=== PATIENT | female | born 1950 | race Caucasian/White ===

== ENCOUNTER 2019-02-24 14:06 | Inpatient (IN) | payer MEDICARE ==
[~2019-02-24] VITALS: Ht 162.6 cm; Wt 80.7 kg
[2019-02-24] MEDS ORDERED: QUET300T2 PO (14:17)
[2019-02-24] MEDS ORDERED: VENL75CA56 PO (14:17)
[2019-02-24] MEDS ORDERED: CLON0.5T PO (14:17)
[2019-02-24 14:47] VITALS: BP 141/96
[2019-02-24] MEDS ORDERED: NITR100C11 PO (15:01)
[2019-02-24] MEDS ORDERED: MAG HYDROX/AL HYDROX/SIMETH 30 ML LIQUID UDC PO PRN (15:15)
[2019-02-24] MEDS ORDERED: MAGNESIUM HYDROXIDE 30 ML LIQUID UDC PO PRN (15:15)
[2019-02-24] MEDS ORDERED: ZOLPIDEM 5 MG TABLET PO PRN (15:15)
[2019-02-24] MEDS: LORAZEPAM 0.5 MG TABLET PO PRN (18:00)
[2019-02-24] MEDS: ACETAMINOPHEN 325 MG TABLET PO PRN (18:32)
[2019-02-24 20:34] VITALS: BP 147/66
[2019-02-24] MEDS ORDERED: NITROFURANTOIN/NITROFURAN MAC 100 MG CAPSULE PO SCH (20:52)
[2019-02-24] MEDS: NITROFURANTOIN/NITROFURAN MAC 100 MG CAPSULE PO SCH (21:27)
[2019-02-24] MEDS ORDERED: LORAZEPAM 0.5 MG TABLET PO PRN (21:30)
[2019-02-25] MEDS: ACETAMINOPHEN 325 MG TABLET PO PRN ×3 (01:14→18:38)
[2019-02-25 07:30] VITALS: BP 132/78
[2019-02-25] MEDS: MULTIVITAMINS,THERAPEUTIC TABLET PO SCH (08:06)
[2019-02-25] MEDS: NITROFURANTOIN/NITROFURAN MAC 100 MG CAPSULE PO SCH ×2 (08:06→20:01)
[2019-02-25] MEDS: THIAMINE HCL 100 MG TABLET PO SCH (08:06)
[2019-02-25] MEDS: FOLIC ACID 1 MG TABLET PO SCH (08:06)
[2019-02-25] MEDS: LORAZEPAM 0.5 MG TABLET PO PRN (08:06)
[2019-02-25 08:09] LABS: BASOPHILS % (AUTO) 0.5 % (0.0-2.0); EOSINOPHILS # (AUTO) 0.1 K/uL (0.0-0.7); HEMOGLOBIN 13.8 g/dL (10.9-14.3); LYMPHOCYTES # (AUTO) 1.8 K/uL (20.0-40.0); MEAN CORPUSCULAR HEMOGLOBIN 34.8 uug (24.7-32.8); MEAN CORPUSCULAR HGB CONC 34 g/dL (32.3-35.6); MEAN CORPUSCULAR VOLUME 103.2 fL (75.5-95.3); MONOCYTES # (AUTO) 0.9 K/uL (2.0-10.0); MONOCYTES % (AUTO) 17.7 % (0.0-11.0); NEUTROPHILS # (AUTO) 2.5 K/uL (1.8-8.9); NEUTROPHILS % (AUTO) 46.8 % (38.5-71.5); PLATELET COUNT (AUTO) 284 K/uL (179-408); RED BLOOD CELL COUNT(AUTO) 3.98 MIL/uL (3.63-4.92); WHITE BLOOD COUNT (AUTO) 5.3 K/uL (3.8-11.8)
[2019-02-25 09:04] LABS: BILIRUBIN,TOTAL 0.5 mg/dL (0.2-1.0); CREATININE 0.7 mg/dL (0.6-1.3); PHOSPHOROUS 3.2 mg/dL (2.5-4.9); POTASSIUM 2.9 mmol/L (3.5-5.1); TOTAL PROTEIN, SERUM 6.4 g/dL (6.4-8.2)
[2019-02-25 09:52] LABS: THYROID STIMULATING HORMONE 23.903 mIU/mL (0.358-3.740)
[2019-02-25 09:57] LABS: EOSINOPHILS % (MANUAL) 2 % (0-8); LYMPHOCYTES % (MANUAL) 41 % (20-40); MONOCYTES % (MANUAL) 15 % (2-10); NEUTROPHILS % (MANUAL) 42 % (42-75)
[2019-02-25] MEDS: CLONAZEPAM 0.5 MG TABLET PO SCH ×3 (10:05→16:24)
[2019-02-25] MEDS ORDERED: POTASSIUM CHLORIDE 20 MEQ TAB.PRT.SR PO ONE (12:45)
[2019-02-25 20:00] VITALS: BP 145/82
[2019-02-25] MEDS ORDERED: QUETIAPINE FUMARATE 200 MG TABLET PO SCH (21:00)
[2019-02-26] MEDS: THYROID 60 MG TABLET PO SCH (06:45)
[2019-02-26 07:56] VITALS: BP 137/77
[2019-02-26] MEDS: CLONAZEPAM 0.5 MG TABLET PO SCH ×3 (08:52→16:08)
[2019-02-26] MEDS: NITROFURANTOIN/NITROFURAN MAC 100 MG CAPSULE PO SCH ×2 (08:52→20:21)
[2019-02-26] MEDS: THIAMINE HCL 100 MG TABLET PO SCH (08:52)
[2019-02-26] MEDS: MULTIVITAMINS,THERAPEUTIC TABLET PO SCH (08:53)
[2019-02-26] MEDS: FOLIC ACID 1 MG TABLET PO SCH (08:53)
[2019-02-26] MEDS: VENLAFAXINE 25 MG TABLET PO SCH (08:56)
[2019-02-26 16:41] VITALS: BP 134/77
[2019-02-26] MEDS: QUETIAPINE FUMARATE 200 MG TABLET PO SCH (20:21)
[2019-02-26 20:26] VITALS: BP 126/77
[2019-02-27] MEDS: ACETAMINOPHEN 325 MG TABLET PO PRN ×3 (06:43→19:34)
[2019-02-27] MEDS: THYROID 60 MG TABLET PO SCH (06:43)
[2019-02-27 07:30] VITALS: BP 139/80
[2019-02-27] MEDS: NITROFURANTOIN/NITROFURAN MAC 100 MG CAPSULE PO SCH ×2 (09:32→20:24)
[2019-02-27] MEDS: MULTIVITAMINS,THERAPEUTIC TABLET PO SCH (09:32)
[2019-02-27] MEDS: THIAMINE HCL 100 MG TABLET PO SCH (09:32)
[2019-02-27] MEDS: CLONAZEPAM 0.5 MG TABLET PO SCH ×3 (09:32→16:40)
[2019-02-27] MEDS: FOLIC ACID 1 MG TABLET PO SCH (09:32)
[2019-02-27] MEDS: VENLAFAXINE 25 MG TABLET PO SCH (09:33)
[2019-02-27 16:00] VITALS: BP 118/70
[2019-02-27] MEDS: QUETIAPINE FUMARATE 200 MG TABLET PO SCH (20:23)
[2019-02-27 20:54] VITALS: BP 126/73
[2019-02-28] MEDS: ACETAMINOPHEN 325 MG TABLET PO PRN ×2 (04:58→10:59)
[2019-02-28] MEDS: THYROID 60 MG TABLET PO SCH (06:44)
[2019-02-28] MEDS: FOLIC ACID 1 MG TABLET PO SCH (08:25)
[2019-02-28] MEDS: THIAMINE HCL 100 MG TABLET PO SCH (08:25)
[2019-02-28] MEDS: MULTIVITAMINS,THERAPEUTIC TABLET PO SCH (08:25)
[2019-02-28] MEDS: CLONAZEPAM 0.5 MG TABLET PO SCH ×3 (08:25→16:44)
[2019-02-28] MEDS: VENLAFAXINE 25 MG TABLET PO SCH ×2 (08:26→16:45)
[2019-02-28 08:50] VITALS: BP 117/68
[2019-02-28 16:00] VITALS: BP 120/79
[2019-02-28] MEDS ORDERED: TRAMADOL HCL 50 MG TABLET PO ONE (19:00)
[2019-02-28 19:50] VITALS: BP 128/67
[2019-02-28] MEDS: QUETIAPINE FUMARATE 200 MG TABLET PO SCH (20:33)
[2019-03-01] MEDS: THYROID 60 MG TABLET PO SCH (06:25)
[2019-03-01 07:49] VITALS: BP_SYST 124; BP_SYST 143; BP_DIAS 58; BP_DIAS 78
[2019-03-01] MEDS: VENLAFAXINE 25 MG TABLET PO SCH ×2 (08:21→17:00)
[2019-03-01] MEDS: CLONAZEPAM 0.5 MG TABLET PO SCH ×3 (08:22→17:00)
[2019-03-01] MEDS: FOLIC ACID 1 MG TABLET PO SCH (08:22)
[2019-03-01] MEDS: MULTIVITAMINS,THERAPEUTIC TABLET PO SCH (08:22)
[2019-03-01] MEDS: THIAMINE HCL 100 MG TABLET PO SCH (08:22)
[2019-03-01] MEDS: ACETAMINOPHEN 325 MG TABLET PO PRN ×2 (08:27→14:38)
[2019-03-01 15:52] VITALS: BP 136/87
[2019-03-01 19:34] VITALS: BP 145/76
[2019-03-01] MEDS: QUETIAPINE FUMARATE 200 MG TABLET PO SCH (21:00)
[2019-03-02] MEDS: ACETAMINOPHEN 325 MG TABLET PO PRN ×3 (02:01→20:08)
[2019-03-02] MEDS: THYROID 60 MG TABLET PO SCH (07:02)
[2019-03-02 07:30] VITALS: BP 115/74
[2019-03-02] MEDS: CLONAZEPAM 0.5 MG TABLET PO SCH ×3 (08:54→16:35)
[2019-03-02] MEDS: MULTIVITAMINS,THERAPEUTIC TABLET PO SCH (08:54)
[2019-03-02] MEDS: VENLAFAXINE 25 MG TABLET PO SCH ×2 (08:54→16:35)
[2019-03-02] MEDS: FOLIC ACID 1 MG TABLET PO SCH (08:54)
[2019-03-02] MEDS: THIAMINE HCL 100 MG TABLET PO SCH (08:54)
[2019-03-02 15:44] VITALS: BP 115/89
[2019-03-02] MEDS: QUETIAPINE FUMARATE 200 MG TABLET PO SCH (20:08)
[2019-03-02 20:47] VITALS: BP 133/67
[2019-03-03] MEDS: ACETAMINOPHEN 325 MG TABLET PO PRN ×4 (03:58→23:32)
[2019-03-03] MEDS: THYROID 60 MG TABLET PO SCH (06:06)
[2019-03-03 07:30] VITALS: BP 124/79
[2019-03-03] MEDS: VENLAFAXINE 25 MG TABLET PO SCH ×2 (08:44→16:59)
[2019-03-03] MEDS: THIAMINE HCL 100 MG TABLET PO SCH (08:44)
[2019-03-03] MEDS: MULTIVITAMINS,THERAPEUTIC TABLET PO SCH (08:44)
[2019-03-03] MEDS: CLONAZEPAM 0.5 MG TABLET PO SCH (08:44)
[2019-03-03] MEDS: FOLIC ACID 1 MG TABLET PO SCH (08:44)
[2019-03-03] MEDS ORDERED: LORAZEPAM 1 MG TABLET PO PRN (09:30)
[2019-03-03] MEDS ORDERED: INFLUENZA VACCINE 2019-2020 0.5 ML DISP.SYRIN IM ONE (11:00)
[2019-03-03 15:35] VITALS: BP 122/87
[2019-03-03 20:00] VITALS: BP 129/79
[2019-03-03] MEDS ORDERED: QUETIAPINE FUMARATE 200 MG TABLET PO SCH (21:00)
[2019-03-04] MEDS: ACETAMINOPHEN 325 MG TABLET PO PRN (05:18)
[2019-03-04] MEDS: THYROID 60 MG TABLET PO SCH (06:01)
[2019-03-04 07:30] VITALS: BP 128/74
[2019-03-04] MEDS: MULTIVITAMINS,THERAPEUTIC TABLET PO SCH (08:39)
[2019-03-04] MEDS: FOLIC ACID 1 MG TABLET PO SCH (08:39)
[2019-03-04] MEDS: THIAMINE HCL 100 MG TABLET PO SCH (08:39)
[2019-03-04] MEDS: VENLAFAXINE 25 MG TABLET PO SCH (08:39)
== END 2019-03-04 13:30 | disposition home or self-care (01) | DRG 885 ==
LOC: ER 14:06 → GPS 14:30
PROVIDERS: ADMIT Psychiatry & Neurology Psychiatry; ATTEND Internal Medicine
DX: F31.64 Bipolar disorder, current episode mixed, severe, with psychotic features (principal); E43 Unspecified severe protein-calorie malnutrition; G92 Toxic encephalopathy; F10.20 Alcohol dependence, uncomplicated; Y90.9 Presence of alcohol in blood, level not specified; E87.6 Hypokalemia; E03.9 Hypothyroidism, unspecified; G89.29 Other chronic pain; F41.9 Anxiety disorder, unspecified; Z79.899 Other long term (current) drug therapy
CPT/HCPCS: 36415; 70030-TC; 70450; 83735; 84100; 84132; 84443; 85025; 90686; A4663